=== PATIENT | female | born 2000 ===

== ENCOUNTER 2022-01-06 02:43 | Inpatient (IN) | payer OTHER ==
[~2022-01-06] VITALS: Ht 162.6 cm; Wt 93.0 kg
[2022-01-09] MEDS ORDERED: SIMETHICONE80 MG PO (10:16)
[2022-01-09] MEDS ORDERED: COLACE100 MG PO (10:16)
[2022-01-09] MEDS ORDERED: IBU800 MG PO (10:16)
[2022-01-09] MEDS ORDERED: PERCOCET 5-3251 EACH PO (10:16)
== END 2022-01-09 10:49 | disposition home or self-care (01) | DRG 743 ==
LOC: EMR PED 02:43 → ER 02:49 → EMR PED 02:49 → SURG-SUITE 18:07 → SEC-K 18:07 → SURG-SUITE 23:13
PROVIDERS: ADMIT Obstetrics & Gynecology; ATTEND Obstetrics & Gynecology
PROC: 3E1M38Z Irrigation of Peritoneal Cavity using Irrigating Substance, Percutaneous Approach (ICD-10-PCS; 2022-01-06)
PROC: 0UB20ZZ Excision of Bilateral Ovaries, Open Approach (ICD-10-PCS; principal; 2022-01-06 18:00)
DX: D27.1 Benign neoplasm of left ovary (principal); D27.0 Benign neoplasm of right ovary; Z20.822 Contact with and (suspected) exposure to COVID-19